=== PATIENT | male | born 1950 | race Caucasian/White ===

== ENCOUNTER 2024-06-01 12:01 | Observation (INO) | payer MEDICARE, OTHER ==
[2024-05-31 18:00] VITALS: BP 103/54; PULSE 68; RESP 18; TEMP 98; O2SAT 97
[~2024-06-01] VITALS: Ht 185.4 cm; Wt 95.0 kg
[2024-06-01 12:32] LABS: BASOPHILS # (AUTO) 0.1 X10'3 (0-0.2); BASOPHILS % (AUTO) 0.9 % (0-1); EOSINOPHILS # (AUTO) 0.3 X10'3 (0-0.9); EOSINOPHILS % (AUTO) 3.6 % (0-6); HEMOGLOBIN 15.3 g/dl (14.0-17.9); LYMPHOCYTES # (AUTO) 1.9 X10'3 (1.1-4.8); LYMPHOCYTES % (AUTO) 23.6 % (21-51); MEAN CORPUSCULAR HEMOGLOBIN 31.1 PG (27.0-31.0); MEAN CORPUSCULAR VOLUME 91.6 FL (78-98); MONOCYTES # (AUTO) 0.4 X10'3 (0-0.9); MONOCYTES % (AUTO) 5.3 % (2-12); NEUTROPHILS # (AUTO) 5.2 X10'3 (1.8-7.7); NEUTROPHILS % (AUTO) 66.6 % (42-75); PLATELET COUNT 312 X10'3 (140-440); RED BLOOD COUNT 4.91 X10'6 (4.70-6.10); RED CELL DISTRIBUTION WIDTH 13.5 % (11.5-14.5); WHITE BLOOD COUNT 7.9 X10'3 (4.5-11.0)
[2024-06-01 12:49] LABS: ALANINE AMINOTRANSFERASE 26 U/L (12-78); ALBUMIN 4.2 G/DL (3.4-5.0); ALBUMIN/GLOBULIN RATIO 1.3 (1.1-1.5); ALKALINE PHOSPHATASE 62 IU/L (46-116); ANION GAP 2 (8-16); ASPARTATE AMINO TRANSFERASE 15 U/L (10-37); BLOOD UREA NITROGEN 12 MG/DL (7-18); BUN/CREATININE RATIO 13.6 (10.0-20.0); CALCIUM 9.1 MG/DL (8.5-10.1); CHLORIDE 105 MMOL/L (99-107); CREATININE 0.88 MG/DL (0.60-1.10); GLUCOSE 115 MG/DL (70-104); POTASSIUM 4.1 MMOL/L (3.5-5.1); SODIUM 137 MMOL/L (135-145); TOTAL CARBON DIOXIDE 30.1 MMOL/L (24-32); TOTAL PROTEIN 7.4 G/DL (6.4-8.2); eCRCL 87 ML/MIN; eGFR 85 ML/MIN
[2024-06-01 12:56] LABS: PRO BRAIN NATRIURETIC PEPTIDE 332 PG/ML (0-125)
[2024-06-01] MEDS: normal saline 1000ML IV soln IVB ONE (13:10)
[2024-06-01] MEDS: diltiazem 5mg/ml 5ml inj. IV ONE (13:10)
[2024-06-01 13:23] LABS: D-DIMER 0.21 MG/L FEU (0-0.50)
--- NOTE | 2024-06-01 14:00 | NUR ---
pt resting in no apparent distress.
[2024-06-01] MEDS ORDERED: potassium Cl 40MEQ/1/2NS 520ml 520 ML IV PRN (14:45)
[2024-06-01] MEDS ORDERED: diltiazem-D5W 125mg/125ml 125 ML IV SCH ×2 (14:45→17:15)
[2024-06-01] MEDS ORDERED: ondansetron/PF 4mg/2ml inj IV PRN (14:45)
[2024-06-01] MEDS ORDERED: magnesium sulf-water 4G/100mL 100 ML IV PRN (14:45)
[2024-06-01] MEDS ORDERED: acetaminophen 325mg tablet PO PRN ×2 (14:45)
[2024-06-01] MEDS ORDERED: HYDROcodone/acetaminophen 5mg/325mg tablet PO PRN (14:45)
[2024-06-01] MEDS ORDERED: potassium Cl 20 mEq SR tablet PO PRN ×2 (14:45)
[2024-06-01] MEDS ORDERED: magnesium sulf-water 2g/50mL 50 ML IV PRN (14:45)
[2024-06-01] MEDS ORDERED: magnesium Cl slow-release 64mg tablet PO PRN (14:45)
[2024-06-01] MEDS ORDERED: diltiazem 30mg tablet PO ONE (14:55)
[2024-06-01] MEDS ORDERED: diltiazem-NS 100mg/100ml 100 ML IV SCH (15:06)
[2024-06-01] MEDS: sotalol HCl 40mg (1/2 tablet) PO STA (15:08)
--- NOTE | 2024-06-01 15:10 | NUR ---
Dr. Hyde at bedside for admission. per Dr. Hyde hold Cardizem drip and hold Sotalol. pt's heart rate is in the 80's-90's at this time.
--- NOTE | 2024-06-01 15:13 | NUR ---
at bedside with patient's eyes closed sleeping.
--- NOTE | 2024-06-01 15:17 | NUR ---
UA sent and vascular US at bedside
[2024-06-01 15:42] LABS: URINE AMPHETAMINE SCREEN NEGATIVE (Neg); URINE BARBITUATE SCREEN NEGATIVE (Neg); URINE BENZODIAZEPINES SCREEN NEGATIVE (Neg); URINE CANNABINOID SCREEN NEGATIVE (Neg); URINE COCAINE SCREEN NEGATIVE (Neg); URINE METHADONE SCREEN NEGATIVE (Neg); URINE OPIATE SCREEN NEGATIVE (Neg); URINE PHENCYCLIDINE SCREEN NEGATIVE (Neg)
[2024-06-01] MEDS: normal saline 1000ml 1,000 ML IV SCH (16:07)
[2024-06-01] MEDS ORDERED: LISI10TA27 PO (16:33)
[2024-06-01] MEDS ORDERED: ATOR20TA66 PO (16:33)
[2024-06-01] MEDS ORDERED: METF-437 PO (16:33)
[2024-06-01] MEDS ORDERED: DULO60CA65 PO (16:33)
[2024-06-01] MEDS ORDERED: TEST200V33 IM (16:33)
[2024-06-01] MEDS ORDERED: METF-438 PO (16:35)
[2024-06-01] MEDS ORDERED: MAGN400T52 PO (16:35)
[2024-06-01] MEDS: diltiazem-NS 100mg/100ml 100 ML IV SCH (17:26)
--- NOTE | 2024-06-01 17:52 | NUR ---
Report given to Courtney ANTHONY. Pt will be taken up after shift change.
[2024-06-01] MEDS ORDERED: glucagon, human recombinant 1mg kit SUBCUT PRN (18:00)
[2024-06-01] MEDS ORDERED: DEXTROSE 15 GM of carb/4 tabs (each vial/BOTTLE has 4 tablets) PO PRN ×2 (18:00)
--- NOTE | 2024-06-01 18:30 | NUR ---
CALL PLACED TO TATY BOOTHE, MESSAGE LEFT TO RETUN PHONE CALL TO ED. PATIENTS HR 105-135 ON 2.5MG CARDIZEM BP 121/80 QUESTION REGARDING ORDER FOR TITRATION
--- NOTE | 2024-06-01 18:35 | NUR ---
paitents vital signs reobtained, hr 93-106 bpm with bp 121/80. no complaints of palpitations, patient denies chest pain, sob, or dizziness. patietns heart rate remained between 93-106 range over the past 12 min. stable with no rate increase. patient transported to [facility] on quality assurance monitor body at this time.
[2024-06-01] MEDS ORDERED: apixaban 5mg tablet PO SCH (20:00)
[2024-06-01] MEDS: heparin, porcine 5000 units/ml vial SQ SCH (20:45)
[2024-06-01] MEDS: INSULIN LISPRO 100 UNIT/ML INSULN.PEN MULTI-DOSE SQ SCH (21:00)
[2024-06-01 22:00] VITALS: BP 100/65; PULSE 68; RESP 15; TEMP 97.4; O2SAT 94
--- NOTE | 2024-06-02 | NUR ---
Pt arrived to unit on 5 mg/hr cardiazem. HR 80s Afib. This RN changed rate to 2.5 mg/hr as noted in EMAR. Currently in 60s HR Afib. Asymptomatic.
[2024-06-02 05:58] VITALS: BP 98/59; PULSE 67; RESP 18; TEMP 98; O2SAT 95
[2024-06-02 06:00] VITALS: BP 90/56; PULSE 66; RESP 20; TEMP 97.8; O2SAT 98
[2024-06-02 07:00] LABS: BASOPHILS # (AUTO) 0.1 X10'3 (0-0.2); BASOPHILS % (AUTO) 0.9 % (0-1); EOSINOPHILS # (AUTO) 0.3 X10'3 (0-0.9); EOSINOPHILS % (AUTO) 4.7 % (0-6); HEMOGLOBIN 13.6 g/dl (14.0-17.9); LYMPHOCYTES # (AUTO) 1.9 X10'3 (1.1-4.8); LYMPHOCYTES % (AUTO) 28.8 % (21-51); MEAN CORPUSCULAR HEMOGLOBIN 31.2 PG (27.0-31.0); MEAN CORPUSCULAR VOLUME 91.5 FL (78-98); MEAN PLATELET VOLUME 9.5 FL (7.4-10.4); MONOCYTES # (AUTO) 0.4 X10'3 (0-0.9); MONOCYTES % (AUTO) 6.2 % (2-12); NEUTROPHILS # (AUTO) 3.9 X10'3 (1.8-7.7); NEUTROPHILS % (AUTO) 59.4 % (42-75); PLATELET COUNT 218 X10'3 (140-440); RED BLOOD COUNT 4.37 X10'6 (4.70-6.10); RED CELL DISTRIBUTION WIDTH 13.4 % (11.5-14.5); WHITE BLOOD COUNT 6.5 X10'3 (4.5-11.0)
[2024-06-02 07:23] LABS: ALANINE AMINOTRANSFERASE 27 U/L (12-78); ALBUMIN 3.4 G/DL (3.4-5.0); ALBUMIN/GLOBULIN RATIO 1.2 (1.1-1.5); ALKALINE PHOSPHATASE 51 IU/L (46-116); ANION GAP 3 (8-16); ASPARTATE AMINO TRANSFERASE 15 U/L (10-37); BILIRUBIN,TOTAL 0.9 MG/DL (0.1-1.0); BLOOD UREA NITROGEN 16 MG/DL (7-18); CALCIUM 8.5 MG/DL (8.5-10.1); CHLORIDE 107 MMOL/L (99-107); CREATININE 0.84 MG/DL (0.60-1.10); GLUCOSE 122 MG/DL (70-104); POTASSIUM 4.2 MMOL/L (3.5-5.1); SODIUM 139 MMOL/L (135-145); TOTAL CARBON DIOXIDE 28.9 MMOL/L (24-32); TOTAL PROTEIN 6.3 G/DL (6.4-8.2); eCRCL 91 ML/MIN; eGFR 90 ML/MIN
[2024-06-02] MEDS: sotalol 80mg tablet PO SCH (08:00)
[2024-06-02] MEDS: apixaban 5mg tablet PO SCH (08:06)
[2024-06-02] MEDS ORDERED: METF-1203 PO (10:37)
[2024-06-02] MEDS ORDERED: MAGN400T52 PO (10:37)
[2024-06-02] MEDS ORDERED: APIX5TAB3 PO (10:37)
[2024-06-02] MEDS ORDERED: LISI10TA27 PO (10:37)
[2024-06-02] MEDS ORDERED: SOTA80TA73 PO (10:37)
--- NOTE | 2024-06-02 11:34 | NUR ---
Discharge orders discussed with pt. all questions answered. pt states he understands all medications and follow up appointments. 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 pt left unit ambulating on own to private car.
[2024-06-02] MEDS ORDERED: atorvastatin 20mg tablet PO SCH (21:00)
== END 2024-06-02 11:44 | disposition home or self-care (01) ==
LOC: ER 12:02 → ED HOLD 14:46 → PCU 3S 18:15
PROVIDERS: ADMIT Internal Medicine; ATTEND Internal Medicine
DX: I10 Essential (primary) hypertension (principal); E11.9 Type 2 diabetes mellitus without complications; I48.20 Chronic atrial fibrillation, unspecified; E78.5 Hyperlipidemia, unspecified; I49.9 Cardiac arrhythmia, unspecified; Z86.2 Personal history of diseases of the blood and blood-forming organs and certain disorders involving the immune mechanism; Z79.899 Other long term (current) drug therapy; Z88.0 Allergy status to penicillin; Z79.84 Long term (current) use of oral hypoglycemic drugs; Z86.79 Personal history of other diseases of the circulatory system; Z79.01 Long term (current) use of anticoagulants
CPT/HCPCS: 36415; 71045; 80053; 80305; 82948; 83036; 83880; 84443; 84484; 85025; 85379; 87081; 93005; 93306; 96361; 96365; 96372; 96376; 99285; G0378; J1644; J1815; J3490; J7030

== ENCOUNTER 2024-10-03 05:55 | Day surgery (SDC) | payer MEDICARE ==
[2024-10-02 11:25] LABS: BASOPHILS # (AUTO) 0.1 X10'3 (0-0.2); BASOPHILS % (AUTO) 0.9 % (0-1); EOSINOPHILS # (AUTO) 0.3 X10'3 (0-0.9); EOSINOPHILS % (AUTO) 4.6 % (0-6); HEMATOCRIT 41.9 % (42.0-52.0); HEMOGLOBIN 14.3 g/dl (14.0-17.9); LYMPHOCYTES # (AUTO) 1.3 X10'3 (1.1-4.8); LYMPHOCYTES % (AUTO) 22.2 % (21-51); MEAN CORPUSCULAR HEMOGLOBIN 30.8 PG (27.0-31.0); MEAN CORPUSCULAR HGB CONC 34.1 g/dL (33.0-36.5); MEAN CORPUSCULAR VOLUME 90.4 FL (78-98); MEAN PLATELET VOLUME 8.6 FL (7.4-10.4); MONOCYTES # (AUTO) 0.4 X10'3 (0-0.9); MONOCYTES % (AUTO) 7.3 % (2-12); NEUTROPHILS # (AUTO) 3.8 X10'3 (1.8-7.7); PLATELET COUNT 250 X10'3 (140-440); RED BLOOD COUNT 4.64 X10'6 (4.70-6.10); RED CELL DISTRIBUTION WIDTH 13.8 % (11.5-14.5); WHITE BLOOD COUNT 5.8 X10'3 (4.5-11.0)
[2024-10-02 11:35] LABS: ALBUMIN 3.9 G/DL (3.4-5.0); ANION GAP 7 (8-16); BLOOD UREA NITROGEN 13 MG/DL (7-18); BUN/CREATININE RATIO 14.9 (10.0-20.0); CALCIUM 8.7 MG/DL (8.5-10.1); CHLORIDE 105 MMOL/L (99-107); CREATININE 0.87 MG/DL (0.60-1.10); GLUCOSE 141 MG/DL (70-104); POTASSIUM 4.5 MMOL/L (3.5-5.1); SODIUM 142 MMOL/L (135-145); TOTAL CARBON DIOXIDE 29.9 MMOL/L (24-32); eGFR 86 ML/MIN
[2024-10-02 11:45] LABS: INR 1.1 INR; PROTHROMBIN TIME 11.3 SECONDS (9.0-12.0)
[~2024-10-03] VITALS: Ht 185.4 cm; Wt 98.9 kg
[2024-10-03] VITALS (10 sets, daily range): BP systolic 102–128; BP diastolic 61–89; PULSE 57–85; RESP 14–15; TEMP 98.3; O2SAT 96–100
[~2024-10-03 05:55] MED LIST: APIX5TAB3 PO; ATOR20TA66 PO; DULO60CA65 PO; LISI10TA27 PO; MAGN400T52 PO; SOTA80TA73 PO; TEST200V33 IM
[2024-10-03] MEDS ORDERED: atropine 0.1mg/ml 10ml syringe IV ONE (06:20)
[2024-10-03] MEDS ORDERED: LORazepam 0.5 MG tablet PO ONE (06:20)
[2024-10-03] MEDS ORDERED: diphenhydrAMINE 25mg capsule PO ONE (06:20)
[2024-10-03] MEDS ORDERED: SOTA80TA73 PO (06:34)
[2024-10-03] MEDS ORDERED: LISI5TAB22 PO (06:34)
[2024-10-03] MEDS ORDERED: DULO60CA59 PO (06:34)
[2024-10-03] MEDS ORDERED: METF-1203 PO (06:34)
[2024-10-03] MEDS ORDERED: magnesium PO (06:35)
[2024-10-03] MEDS: MIDAZolam 1mg/ml 10ml vial IV ONE (08:43)
[2024-10-03] MEDS: morphine 10mg/ml inj. IV ONE (08:43)
[2024-10-03] MEDS: normal saline 1000ml 1,000 ML IV SCH (08:44)
[2024-10-03] MEDS: amiodarone 150mg/dext, iso-os 100 ML IV ONE (08:45)
== END 2024-10-03 10:05 | disposition home or self-care (01) ==
LOC: SSTAY O 05:55
PROVIDERS: ATTEND Internal Medicine Cardiovascular Disease
DX: I48.0 Paroxysmal atrial fibrillation (principal); E11.9 Type 2 diabetes mellitus without complications; I10 Essential (primary) hypertension; I45.19 Other right bundle-branch block; Z79.899 Other long term (current) drug therapy; Z98.890 Other specified postprocedural states
CPT/HCPCS: 36415; 80048; 85025; 85610; 92960; 93005; J0282; J2250; J2274; J7030

== ENCOUNTER 2025-01-10 08:55 | Day surgery (SDC) | payer MEDICARE, OTHER ==
[2025-01-09 13:56] LABS: BASOPHILS # (AUTO) 0.1 X10'3 (0-0.2); BASOPHILS % (AUTO) 1.2 % (0-1); EOSINOPHILS # (AUTO) 0.4 X10'3 (0-0.9); HEMATOCRIT 43.5 % (42.0-52.0); HEMOGLOBIN 14.8 g/dl (14.0-17.9); LYMPHOCYTES # (AUTO) 2.2 X10'3 (1.1-4.8); LYMPHOCYTES % (AUTO) 25.5 % (21-51); MEAN CORPUSCULAR HGB CONC 33.9 g/dL (33.0-36.5); MEAN CORPUSCULAR VOLUME 91.4 FL (78-98); MEAN PLATELET VOLUME 8.4 FL (7.4-10.4); MONOCYTES # (AUTO) 0.5 X10'3 (0-0.9); NEUTROPHILS # (AUTO) 5.3 X10'3 (1.8-7.7); NEUTROPHILS % (AUTO) 62.3 % (42-75); PLATELET COUNT 320 X10'3 (140-440); RED BLOOD COUNT 4.76 X10'6 (4.70-6.10); RED CELL DISTRIBUTION WIDTH 14.3 % (11.5-14.5); WHITE BLOOD COUNT 8.4 X10'3 (4.5-11.0)
[2025-01-09 14:09] LABS: INR 1.1 INR; PROTHROMBIN TIME 11.3 SECONDS (9.0-12.0)
[2025-01-09 14:13] LABS: ANION GAP 3 (8-16); BLOOD UREA NITROGEN 22 MG/DL (7-18); BUN/CREATININE RATIO 22.7 (10.0-20.0); CALCIUM 8.8 MG/DL (8.5-10.1); CHLORIDE 103 MMOL/L (99-107); CREATININE 0.97 MG/DL (0.60-1.10); GLUCOSE 132 MG/DL (70-104); POTASSIUM 5.1 MMOL/L (3.5-5.1); SODIUM 137 MMOL/L (135-145); TOTAL CARBON DIOXIDE 31.1 MMOL/L (24-32); eGFR 76 ML/MIN
[2025-01-09 14:14] LABS: ALBUMIN 4.1 G/DL (3.4-5.0)
[~2025-01-10] VITALS: Ht 185.4 cm; Wt 97.1 kg
[2025-01-10] VITALS (11 sets, daily range): BP systolic 110–142; BP diastolic 68–84; PULSE 58–86; RESP 11–15; TEMP 97.5; O2SAT 97–100
[~2025-01-10 08:55] MED LIST changes: -APIX5TAB3 PO; +DULO60CA59 PO; -LISI10TA27 PO; +LISI5TAB22 PO; -MAGN400T52 PO; +METF-1203 PO; -TEST200V33 IM; +magnesium PO
[2025-01-10] MEDS ORDERED: APIX5TAB3 PO (09:14)
[2025-01-10] MEDS ORDERED: CARV-50 PO (09:14)
[2025-01-10] MEDS ORDERED: AMI200T PO (09:14)
[2025-01-10] MEDS ORDERED: LISI10TA27 PO (09:14)
[2025-01-10] MEDS ORDERED: LORazepam 0.5 MG tablet PO ONE (09:15)
[2025-01-10] MEDS ORDERED: amiodarone 150mg/dext, iso-os 100 ML IV ONE (09:15)
[2025-01-10] MEDS ORDERED: diphenhydrAMINE 25mg capsule PO ONE (09:15)
[2025-01-10] MEDS ORDERED: atropine 0.1mg/ml 10ml syringe IV ONE (09:15)
[2025-01-10] MEDS: MIDAZolam 1mg/ml 10ml vial IV ONE (11:34)
[2025-01-10] MEDS: normal saline 1000ml 1,000 ML IV SCH (11:34)
[2025-01-10] MEDS: morphine 10mg/ml inj. IV ONE (11:34)
== END 2025-01-10 12:30 | disposition home or self-care (01) ==
LOC: SSTAY O 08:55
PROVIDERS: ATTEND Internal Medicine Cardiovascular Disease
DX: I48.19 Other persistent atrial fibrillation (principal); I48.0 Paroxysmal atrial fibrillation; I10 Essential (primary) hypertension; E78.5 Hyperlipidemia, unspecified; E11.9 Type 2 diabetes mellitus without complications; Z79.899 Other long term (current) drug therapy
CPT/HCPCS: 36415; 80048; 85025; 85610; 92960; 93005; J2250; J2274; J7030